=== PATIENT | female | born 1960 | race Caucasian/White ===

== ENCOUNTER 2020-11-06 20:32 | Emergency (ER) | payer OTHER, SELFPAY ==
--- NOTE | ~2020-11-06 | XR_ITS ---
XR ankle RT min 3V 11/06/2020 21:48 Indication: Right ankle pain Procedure: 4 views right ankle Comparison: No prior studies for comparison. Findings: No acute fracture or traumatic malalignment. There is moderate diffuse soft tissue swelling . Ankle mortise intact. Talar dome within normal limits. No foreign bodies. There are degenerative ch anges of the talonavicular joint. There is a prominent plantar surface calcaneal enthesophyte. Impression: 1: No acute fracture. Reviewed, dictated and finalized at location A. Impression: 1: No acute fracture.
[2020-11-06 20:44] VITALS: BP 191/83; PULSE 86; RESP 16; TEMP 36.2; O2SAT 98
--- NOTE | 2020-11-06 22:20 | ED.GENADULT ---
HPI - General Adult General Chief complaint: Extremity Injury, Lower <Greg Booker PA-C - Last Filed: 11/06/20 22:22> Stated complaint: right ankle pain <Greg Booker PA-C - Last Filed: 11/06/20 22:22> Time Seen by Provider: 11/06/20 22:04 <Greg Booker PA-C - Last Filed: 11/06/20 22:22> Source: patient and family <Greg Booker PA-C - Last Filed: 11/06/20 22:22> Mode of arrival: ambulatory <Greg Booker PA-C - Last Filed: 11/06/20 22:22> Limitations: no limitations <Greg Booker PA-C - Last Filed: 11/06/20 22:22> History of Present Illness HPI narrative: Patient is a 60-year-old female who presents to emergency department for evaluation of right ankle injury that occurred today after slipping on the stairs and injuring the ankle presents with bruising swelling and tenderness laterally has not taken anything for her symptoms no she is able to bear weight with discomfort <Greg Booker PA-C - Last Filed: 11/06/20 22:22> Related Data Allergies/adverse reactions: Allergies Allergy/AdvReac Type Severity Reaction Status Date / Time shellfish derived Allergy Unknown Unverified 03/21/14 14:13 <Greg Booker PA-C - Last Filed: 11/06/20 22:22> Review of Systems Review of Systems: All systems reviewed & are unremarkable except as noted in HPI and below <Greg Booker PA-C - Last Filed: 11/06/20 22:22> FOR[facility]LY [facility] Past Medical History Medical History: Medical History (Updated 11/07/20 @ 00:00 by Tanisha Medina) Obesity <Greg Booker PA-C - Last Filed: 11/06/20 22:22> Family History Family History: Family History (Updated 02/15/16 @ 23:19 by DOCTOR UNKNOWN) Mother Hypertension Family history of diabetes mellitus in first degree relative Father Family history of coronary artery disease <Greg Booker PA-C - Last Filed: 11/06/20 22:22> Social History Social History: Social History (Updated 11/06/20 @ 22:21 by Greg oBoker PA-C) Smoking status: Never smoker Alcohol intake: never <Greg Booker PA-C - Last Filed: 11/06/20 22:22> Exam Narrative: Exam Narrative: GENERAL: Well-appearing, well-nourished, and in no acute distress. HEAD: Normocephalic, atraumatic. EYES: PERRLA and EOMI. ENT: Nares clear, no rhinorrhea or epistaxis. Mucous membranes moist. CHEST: Clear to auscultation. No respiratory distress. No wheezes rales or rhonchi HEART: Regular rate and rhythm. No murmur heard. EXTREMITIES: Normal range of motion. No edema. Swelling and tenderness of the lateral aspect of the right ankle SKIN: Warm, dry, no rash. NEURO: No focal deficits. Alert and oriented x3. Neurovascularly intact PSYCH: Normal mood and affect. <Greg Booker PA-C - Last Filed: 11/06/20 22:22> Course Course Emergency Course: Patient in the room in no distress aware of case findings treatment plan and diagnosis agreeing to follow-up as instructed <Greg Booker PA-C - Last Filed: 11/06/20 22:22> Vital Signs Vital signs: Vital Signs Temperature 97.1 F L 11/06/20 20:44 Pulse Rate 86 11/06/20 20:44 Respiratory Rate 16 11/06/20 20:44 Blood Pressure 191/83 H 11/06/20 20:44 Pulse Oximetry 98 11/06/20 20:44 Temperature 97.1 F L 11/06/20 20:44 Pulse Rate 73 11/06/20 22:54 Respiratory Rate 18 11/06/20 22:54 Blood Pressure 180/84 H 11/06/20 22:54 Pulse Oximetry 97 11/06/20 22:54 <Greg Booker PA-C - Last Filed: 11/06/20 22:22> Vital Signs Temperature 97.1 F L 11/06/20 20:44 Pulse Rate 86 11/06/20 20:44 Respiratory Rate 16 11/06/20 20:44 Blood Pressure 191/83 H 11/06/20 20:44 Pulse Oximetry 98 11/06/20 20:44 Temperature 97.1 F L 11/06/20 20:44 Pulse Rate 73 11/06/20 22:54 Respiratory Rate 18 11/06/20 22:54 Blood Pressure 180/84 H 11/06/20 22:54 Pulse Oximetry 97 11/06/20 22:54 <Nati Isaacs MD - Last
[2020-11-06 22:54] VITALS: BP 180/84; PULSE 73; RESP 18; O2SAT 97
== END 2020-11-06 22:54 | disposition home or self-care (01) ==
PROVIDERS: Emergency Provider General Practice
DX: S93.401A Sprain of unspecified ligament of right ankle, initial encounter (principal); W18.40XA Slipping, tripping and stumbling without falling, unspecified, initial encounter
CPT/HCPCS: 73610; 99283

== ENCOUNTER 2020-11-18 10:20 | Emergency (ER) | payer OTHER, SELFPAY ==
--- NOTE | 2020-11-18 10:24 | ED.UPPEXIN ---
HPI - Extremity Injury (Upper) General Chief Complaint: Nausea/Vomiting/Diarrhea Stated Complaint: NAUSEA/WEAKNESS/NOT EATING Time Seen by Provider: 11/18/20 10:24 Source: patient and RN notes reviewed History of Present Illness HPI narrative: Patient is a 60-year-old female who presents the urgent care with complaints of nausea for approximately 3 to 4 days. Patient also reports of fatigue and some intermittent vertigo type symptoms . Patient states that every time she attempts to eat she becomes severely nauseated but denies of any abdominal pain or vomiting. Patient states that she works at the [employer] but denies of any known exposure to Covid. Patient denies of any upper respiratory symptoms including cough, shortness of breath or chest pain. Patient denies of any past medical history. Denies of any use of [id number] medication for her symptoms. Denies of fever, chills. No other acute complaints. No acute distress noted. Patient aware of the plan of care. Some parts of this dictation were generated by voice recognition software and may contain typographical and/or grammatical inaccuracies. Related Data Allergies Allergy/AdvReac Type Severity Reaction Status Date / Time shellfish derived Allergy Unknown Unverified 03/21/14 14:13 Review of Systems Review of Systems: Narrative: CONSTITUTIONAL: Denies fever, chills, or sweats. EYES: Denies visual changes, redness, or discharge. ENT: Denies rhinorrhea, congestion, sore throat, or otalgia. CARDIOVASCULAR: Denies chest pain, palpitations, or edema. RESPIRATORY: Denies cough or dyspnea. GASTROINTESTINAL: Reports of nausea without vomiting or diarrhea GENITOURINARY: Denies dysuria or hematuria. SKIN: Denies rash or itching. MUSCULOSKELETAL: Denies back pain, joint pain, or myalgia. NEUROLOGIC: Denies headache, numbness. Reports of fatigue All other systems reviewed are negative, except as documented in HPI. [facility] Past Medical History Medical History (Updated 11/07/20 @ 00:00 by Tanisha Daemsavage) Obesity Family History Family History (Updated 02/15/16 @ 23:19 by DOCTOR UNKNOWN) Mother Hypertension Family history of diabetes mellitus in first degree relative Father Family history of coronary artery disease Social History Social History (Updated 11/06/20 @ 22:21 by Greg Booker PA-C) Smoking status: Never smoker Alcohol intake: never Comments At the time of my signature, I reviewed and agree with the nursing past medical, surgical, social, and family history. There is no relevant family history pertinent to the patient complaint. Exam Narrative: Exam Narrative: GENERAL: This is a well-nourished, well-developed patient, in no apparent distress. HEAD: normocephalic, atraumatic. EYES: PERRL. Sclera clear/white. Vision is grossly intact. EARS: External ears normal, auditory canals clear and without drainage, TMs normal without perforation. Hearing grossly intact. NOSE: External nose normal with no obvious nasal discharge, nares without redness, no rhinorrhea. THROAT: Mucous membranes moist, posterior pharynx clear. NECK: Neck supple, non-tender without lymphadenopathy, masses or thyromegaly. CARDIOVASCULAR: Regular rate and rhythm without murmurs, gallops, or rubs. RESPIRATORY: Clear to auscultation. Breath sounds equal bilaterally. No wheezes, rales, or rhonchi. GASTROINTESTINAL: Abdomen soft, non-tender, nondistended. Bowel sounds are active. No hepato-splenomegaly, or palpable masses. No guarding. SKIN: warm, intact with no suspicious lesions or rash, good texture and turgor. NEURO: awake, alert, and oriented to person, place and time. There were no obvious focal neurologic abnormalities. EXTREMITIES: No clubbing, cyanosis, or edema. No joint tenderness, effusion, or edema noted. No calf tenderness. Negative Homans sign bilaterally. BACK: Nontender without deformity or crepitance. No flank tenderness.
[2020-11-18 10:29] VITALS: BP 149/76; PULSE 87; RESP 16; TEMP 37.2; O2SAT 95
[2020-11-18 10:40] LABS: Glucose Point of Care 109 (65-105)
--- NOTE | 2020-11-18 10:43 | ED.NAVMDI ---
HPI - Nausea/Vomiting/Diarrhea General Chief complaint: Nausea/Vomiting/Diarrhea Stated complaint: NAUSEA/WEAKNESS/NOT EATING Time Seen by Provider: 11/18/20 10:24 Source: patient and RN notes reviewed History of Present Illness HPI Narrative: Patient is a 60-year-old female who presents the urgent care with complaints of nausea for approximately 3 to 4 days. Patient also reports of fatigue and some intermittent vertigo type symptoms . Patient states that every time she attempts to eat she becomes severely nauseated but denies of any abdominal pain or vomiting. Patient states that she works at the [employer] but denies of any known exposure to Covid. Patient denies of any upper respiratory symptoms including cough, shortness of breath or chest pain. Patient denies of any past medical history. Denies of any use of [id number] medication for her symptoms. Denies of fever, chills. No other acute complaints. No acute distress noted. Patient aware of the plan of care. Some parts of this dictation were generated by voice recognition software and may contain typographical and/or grammatical inaccuracies. Related Data Allergies Allergy/AdvReac Type Severity Reaction Status Date / Time shellfish derived Allergy Unknown Unverified 03/21/14 14:13 Review of Systems Review of Systems: Narrative: CONSTITUTIONAL: Denies fever, chills, or sweats. EYES: Denies visual changes, redness, or discharge. ENT: Denies rhinorrhea, congestion, sore throat, or otalgia. CARDIOVASCULAR: Denies chest pain, palpitations, or edema. RESPIRATORY: Denies cough or dyspnea. GASTROINTESTINAL: Reports of nausea without abdominal pain, vomiting or diarrhea GENITOURINARY: Denies dysuria or hematuria. SKIN: Denies rash or itching. MUSCULOSKELETAL: Denies back pain, joint pain, or myalgia. NEUROLOGIC: Denies headache, numbness. Reports of fatigue All other systems reviewed are negative, except as documented in HPI. [facility] Past Medical History Medical History (Updated 11/18/20 @ 10:47 by NANCY Barton) Obesity Family History Family History (Updated 02/15/16 @ 23:19 by DOCTOR UNKNOWN) Mother Hypertension Family history of diabetes mellitus in first degree relative Father Family history of coronary artery disease Social History Social History (Updated 11/06/20 @ 22:21 by Greg Booker PA-C) Smoking status: Never smoker Alcohol intake: never Comments At the time of my signature, I reviewed and agree with the nursing past medical, surgical, social, and family history. There is no relevant family history pertinent to the patient complaint. Exam Narrative: Exam Narrative: GENERAL: This is a well-nourished, well-developed patient, in no apparent distress. Appears slightly fatigued HEAD: normocephalic, atraumatic. EYES: PERRL. Sclera clear/white. Vision is grossly intact. EARS: External ears normal NOSE: External nose normal with no obvious nasal discharge, nares without redness, no rhinorrhea. THROAT: Mucous membranes moist NECK: Neck supple CARDIOVASCULAR: Regular rate and rhythm without murmurs, gallops, or rubs. RESPIRATORY: Clear to auscultation. Breath sounds equal bilaterally. No wheezes, rales, or rhonchi. GASTROINTESTINAL: Abdomen soft, non-tender, nondistended. Bowel sounds are active. SKIN: warm, intact with no suspicious lesions or rash, good texture and turgor. NEURO: awake, alert, and oriented to person, place and time. There were no obvious focal neurologic abnormalities. EXTREMITIES: No clubbing, cyanosis, or edema BACK: Mild diffuse lumbar tenderness Course Vital Signs Vital signs: Vital Signs Temperature 98.9 F 11/18/20 10:29 Pulse Rate 87 11/18/20 10:29 Respiratory Rate 16 11/18/20 10:29 Blood Pressure 149/76 H 11/18/20 10:29 Pulse Oximetry 95 11/18/20 10:29 Temperature 98.9 F 11/18/20 10:29 Pulse Rate 87 11/18/20 10:29 Respiratory Rate 16 11/18/20 10:29 Blood Pressure
== END 2020-11-18 11:06 | disposition home or self-care (01) ==
PROVIDERS: Emergency Provider Nurse Practitioner Family
DX: U07.1 COVID-19 (principal)
CPT/HCPCS: 81003; 82948; 87426; 99213; C9803; G0463

== ENCOUNTER 2022-04-03 16:19 | Emergency (ER) | payer OTHER, SELFPAY ==
[2022-04-03] VITALS (16 sets, daily range): BP systolic 175–224; BP diastolic 77–108; PULSE 83–107; RESP 12–32; TEMP 36.6; O2SAT 98–99
--- NOTE | ~2022-04-03 | XR_ITS ---
EXAMINATION: XR chest 2V DATE: 04/03/2022 16:49 INDICATION: Shortness of breath. Generalized chest pain. TECHNIQUE: Frontal and lateral views of the chest were obtained. COMPARISON: None. FINDINGS: There is mild atelectasis in left lower lung zone. No pleural effusion or pneumothorax. The heart size is normal. IMPRESSION: 1. Mild atelectasis in left lower lung zone. Reviewed, dictated and finalized at location A.
--- NOTE | 2022-04-03 16:21 | ECG_ITS ---
Measurements Intervals [place] Rate: 97 P: 62 TX: 148 QRS: 18 QRSD: 89 T: 42 QT: 362 QTc: 460 Interpretive Statements SINUS RHYTHM DELAYED PRECORDIAL R/S TRANSITION BORDERLINE ST-T WAVE ABNORMALITY- INF/LAT LEADS BORDERLINE ECG NO PREVIOUS ECG AVAILABLE FOR COMPARISON Electronically Signed On 04-03-2022 21:33:00 CDT by [place] D.O.
[2022-04-03 17:15] LABS: Basophils Percent Auto 0.7 % (0.2-1.2); Eosinophils Absolute Auto 0.1 K/mm3 (0-0.3); Hematocrit 45.1 % (37.0-47.0); Hemoglobin 15.3 g/dL (12.0-15.0); Immature Granulocyte Absolute 0.03 K/mm3 (0.00-0.031); Immature Granulocyte Percent A 0.5 % (0-0.5); Lymphocytes Absolute Auto 1.62 K/mm3 (0.9-3.2); Lymphocytes Percent Auto 27.1 % (18.3-44.2); Mean Corpuscular HGB Conc 33.9 g/dl (32-36); Mean Corpuscular Hemoglobin 29.4 pg (26-34); Mean Corpuscular Volume 86.7 fl (80-100); Mean Platelet Volume 10.6 fl (7.4-10.4); Monocytes Absolute Auto 0.6 K/mm3 (0.1-0.6); Monocytes Percent Auto 10.2 % (2.6-8.5); Neutrophils Absolute Auto 3.6 K/mm3 (1.3-6.7); Neutrophils Percent Auto 60.5 % (45.5-73.1); Platelet Count Result 168 k/mm3 (150-375); Red Cell Distribution Width 12.9 % (11.5-14.5)
[2022-04-03 17:24] LABS: Alanine Aminotransferase 73 U/L (6-35); Albumin Level 4.7 g/dL (3.5-5.1); Alkaline Phosphatase 101 U/L (38-126); Anion Gap 11 mmol/L (8-16); Aspartate Amino Transferase 62 U/L (14-36); Bilirubin,Total 0.7 mg/dL (0.2-1.3); Blood Urea Nitrogen 17 mg/dL (7-17); Calcium 9.9 mg/dL (8.4-10.2); Carbon Dioxide 29 mmol/L (22-30); Chloride 100 mmol/L (98-107); Estimated CRCL calculation 69 ml/min; Estimated Glomerular Filt Rate > 60; Glucose 116 mg/dL (65-110); Lipase 73 U/L (23-300); Potassium 3.4 mmol/L (3.4-5.0); Sodium 140 mmol/L (137-145)
[2022-04-03 17:25] LABS: INR 1.1; Prothrombin Time 13.5 Seconds (11.1-14.7)
[2022-04-03 17:26] LABS: Partial Thromboplastin Time 24.9 SECONDS (22.3-36.8)
[2022-04-03 17:36] LABS: Troponin I < 0.012 ng/mL (0.000-0.034)
[2022-04-03] MEDS: ASPIRIN 81 MG CHEWABLE TABLET 324 MG PO (18:41)
[2022-04-03] MEDS: amLODIPine BESYLATE 5 MG TABLET 10 MG PO (18:42)
[2022-04-03] MEDS: hydroCHLOROthiazide 25 MG TABLET PO (18:42)
--- NOTE | 2022-04-03 19:46 | ED.CHESTPAIN ---
HPI - Chest Pain General Chief Complaint: Chest Pain Stated Complaint: CHEST PAIN X1/2 HOUR Time Seen by Provider: 04/03/22 18:00 History of Present Illness HPI narrative: Patient is a 61-year-old female who presents ER with chest pain. Central. Lasted for about a minute. She had 2 episodes. No radiation. No nausea or vomiting. No dyspnea or diaphoresis. No history of heart disease. Patient does not see doctors at baseline. Symptoms occurred moments prior to arrival. Related Data Allergies Allergy/AdvReac Type Severity Reaction Status Date / Time shellfish derived Allergy Unknown Swelling Verified 04/03/22 18:12 of Lip/Tongue/Throat Review of Systems Review of Systems: All systems reviewed & are unremarkable except as noted in HPI and below Constitutional: Constitutional: Denies chills, Denies fatigue and Denies fever(s) ENT: Denies nasal congestion and Denies sore throat Cardiovascular: Cardiovascular: Reports chest pain, Denies rapid heart rate, Denies radiating jaw, neck or arm pain and Denies slow heart rate Respiratory: Respiratory: Denies cough and Denies dyspnea Gastrointestinal: Gastrointestinal: Denies abdominal pain, Denies nausea and Denies vomiting Musculoskeletal: Musculoskeletal: Denies back pain PMF Past Medical History Medical History (Updated 04/03/22 @ 20:36 by Dagoberto Rivera MD) Obesity Surgical History Surgical History (Updated 04/03/22 @ 19:49 by Dagoberto Rivera MD) No history of previous surgery Family History Family History (Updated 02/15/16 @ 23:19 by DOCTOR UNKNOWN) Mother Hypertension Family history of diabetes mellitus in first degree relative Father Family history of coronary artery disease Social History Social History (Updated 11/06/20 @ 22:21 by Greg Booker, PA-C) Smoking status: Never smoker Alcohol intake: never Exam Narrative: GENERAL: Well-appearing, morbidly obese, and in no acute distress. HEAD: Normocephalic, atraumatic. ENT: Mucous membranes moist. NECK: Supple. CHEST: Clear to auscultation. No respiratory distress. HEART: Regular rate and rhythm. Normal peripheral pulses. ABDOMEN: Soft, nontender, nondistended. EXTREMITIES: Normal range of motion. No edema. SKIN: Warm, dry, no rash. NEURO: Alert and oriented x3. PSYCH: Normal mood and affect. Course Course Emergency Course: Troponin negative x2. His blood pressure has come down on its own but patient also has been given treatment to help lower it further. She plans on establishing care with PCP tomorrow. She will be given a weeks worth of medication. Vital Signs Vital signs: Vital Signs Temperature 97.9 F 04/03/22 16:41 Pulse Rate 107 H 04/03/22 16:41 Respiratory Rate 20 04/03/22 16:41 Blood Pressure 224/102 H 04/03/22 16:41 Pulse Oximetry 98 04/03/22 16:41 Oxygen Delivery Room Air 04/03/22 16:41 Temperature 97.9 F 04/03/22 16:41 Pulse Rate 83 04/03/22 19:32 Respiratory Rate 21 H 04/03/22 19:32 Blood Pressure 196/88 H 04/03/22 19:32 Pulse Oximetry 98 04/03/22 16:41 Oxygen Delivery Room Air 04/03/22 16:41 MDM - Chest Pain Lab Data Result diagrams: 04/03/22 16:57 04/03/22 16:57 Labs: Lab Results 04/03/22 04/03/22 04/03/22 Range/Units 16:57 16:57 16:57 WBC 6.0 (4.5-10.0) K/mm3 RBC 5.20 (4.2-5.4) M/mm3 Hgb 15.3 H (12.0-15.0) g/dL Hct 45.1 (37.0-47.0) % MCV 86.7 (80-100) fl MCH 29.4 (26-34) pg MCHC 33.9 (32-36) g/dl RDW 12.9 (11.5-14.5) % Plt Count 168 (150-375) k/mm3 MPV 10.6 H (7.4-10.4) fl Immature Gran % (Auto) 0.5 (0-0.5) % Neut % (Auto) 60.5 (45.5-73.1) % Lymph % (Auto) 27.1 (18.3-44.2) % [place] % (Auto) 10.2 H (2.6-8.5) % Eos % (Auto) 1.0 (0-4.4) % Baso % (Auto) 0.7 (0.2-1.2) % Lymph # (Auto) 1.62 (0.9-3.2) K/mm3 [place] # (Auto) 0.6 (0.1-0.6) K/mm3 Eos # (Auto) 0.1
[2022-04-03 19:59] LABS: Troponin I < 0.012 ng/mL (0.000-0.034)
== END 2022-04-03 20:45 | disposition home or self-care (01) ==
PROVIDERS: Emergency Provider Emergency Medicine
DX: R07.9 Chest pain, unspecified (principal); I10 Essential (primary) hypertension; E66.9 Obesity, unspecified; Z68.42 Body mass index [BMI] 45.0-49.9, adult; R94.31 Abnormal electrocardiogram [ECG] [EKG]
CPT/HCPCS: 36415; 71046; 80053; 83690; 84484; 85025; 85610; 85730; 93005; 99284; A9270

== ENCOUNTER 2024-02-23 08:38 | Outpatient (CLI) | payer OTHER, SELFPAY ==
[2024-02-23 09:19] LABS: Hematocrit 44.3 % (37.0-47.0); Hemoglobin 14.1 g/dL (12.0-15.0); Mean Corpuscular HGB Conc 31.8 g/dl (32-36); Mean Corpuscular Hemoglobin 28.6 pg (26-34); Mean Corpuscular Volume 89.9 fl (80-100); Mean Platelet Volume 10.9 fl (7.4-10.4); Platelet Count Result 157 k/mm3 (150-375); Red Blood Count 4.93 M/mm3 (4.2-5.4); Red Cell Distribution Width 13.4 % (11.5-14.5); White Blood Count 6.6 K/mm3 (4.5-10.0)
[2024-02-23 10:25] LABS: MALB Creatinine Ratio 9.4 mg/g (0-30); Microalbumin Urine Random 16.7 mg/L (0-16.7)
[2024-02-23 10:30] LABS: Alanine Aminotransferase 24 U/L (6-35); Albumin Level 4.5 g/dL (3.5-5.1); Alkaline Phosphatase 67 U/L (38-126); Anion Gap 9 mmol/L (4-12); Aspartate Amino Transferase 28 U/L (14-36); Bilirubin,Total 0.5 mg/dL (0.2-1.3); Blood Urea Nitrogen 26 mg/dL (7-17); Calcium 9.6 mg/dL (8.4-10.2); Carbon Dioxide 31 mmol/L (22-30); Chloride 102 mmol/L (98-107); Cholesterol 138 mg/dL (0-200); Estimated Glomerular Filt Rate 50; Glucose 124 mg/dL (65-110); HDL Direct 52 mg/dL; Potassium 4.1 mmol/L (3.4-5.0); Sodium 142 mmol/L (137-145); Triglycerides 119 mg/dL (<150)
[2024-02-23 10:35] LABS: LDL Cholesterol Direct 55 mg/dL
[2024-02-23 11:01] LABS: Free T4 Free Thyroxine 1.04 ng/mL (0.78-2.19)
[2024-02-23 11:25] LABS: Vitamin D 25 Hydroxy 53.2 ng/mL
[2024-02-23 11:31] LABS: Hemoglobin A1C 6.3 % (<5.7)
== END 2024-02-23 08:39 | disposition home or self-care (01) ==
LOC: ANHLAB 08:40
PROVIDERS: PCP Nurse Practitioner Family; Visit Provider Nurse Practitioner Family
DX: G47.33 Obstructive sleep apnea (adult) (pediatric) (principal); E05.00 Thyrotoxicosis with diffuse goiter without thyrotoxic crisis or storm; E07.9 Disorder of thyroid, unspecified; E78.5 Hyperlipidemia, unspecified; I10 Essential (primary) hypertension; R53.83 Other fatigue
CPT/HCPCS: 36415; 80053; 80061; 82043; 82306; 83036; 84439; 84443; 85027

== ENCOUNTER 2024-05-10 13:49 | Outpatient (CLI) | payer OTHER, SELFPAY ==
[2024-05-10 15:11] LABS: Anion Gap 10 mmol/L (4-12); Blood Urea Nitrogen 21 mg/dL (7-17); Carbon Dioxide 28 mmol/L (22-30); Chloride 102 mmol/L (98-107); Estimated Glomerular Filt Rate 42; Glucose 92 mg/dL (65-110); Potassium 3.7 mmol/L (3.4-5.0); Sodium 140 mmol/L (137-145)
== END 2024-05-10 13:50 | disposition home or self-care (01) ==
LOC: ANHLAB 13:50
PROVIDERS: PCP Family Medicine; Visit Provider Nurse Practitioner Family
DX: E05.00 Thyrotoxicosis with diffuse goiter without thyrotoxic crisis or storm (principal); I10 Essential (primary) hypertension; Z68.43 Body mass index [BMI] 50.0-59.9, adult
CPT/HCPCS: 36415; 80048; 84436; 84443

== ENCOUNTER 2024-06-03 11:09 | Outpatient (CLI) | payer OTHER, SELFPAY ==
[2024-06-03 11:53] LABS: Anion Gap 6 mmol/L (4-12); Blood Urea Nitrogen 21 mg/dL (7-17); Calcium 9.6 mg/dL (8.4-10.2); Carbon Dioxide 29 mmol/L (22-30); Chloride 104 mmol/L (98-107); Estimated Glomerular Filt Rate 50; Glucose 92 mg/dL (65-110); Potassium 3.7 mmol/L (3.4-5.0); Sodium 139 mmol/L (137-145)
== END 2024-06-03 11:10 | disposition home or self-care (01) ==
LOC: ANHLAB 11:10
PROVIDERS: PCP Family Medicine; Visit Provider Nurse Practitioner Family
DX: N28.9 Disorder of kidney and ureter, unspecified (principal)
CPT/HCPCS: 36415; 80048

== ENCOUNTER 2025-02-21 08:19 | Outpatient (CLI) | payer OTHER, SELFPAY ==
--- OUTSIDE RECORDS SUMMARY | 2025-02-21 08:23 | XMS_ITS | Clinical Summary ---
Author Organization [facility] Care Team Providers Care Interior Design Professional Name Role Phone Unavailable Primary Care Provider Unavailabl e Social History Tobacco Use Types Packs/Day Years Used Date Smoking Tobacco: Never Assessed Comments Unknown Sex and Gender Information Value Date Recorded Sex Assigned at Not on file Legal Sex Female 10:18 PM CDT Gender Identity Not on file Sexual Orientation Not on file Plan of Treatment Not on file
[2025-02-21 08:51] LABS: Hematocrit 42.5 % (37.0-47.0); Hemoglobin 13.9 g/dL (12.0-15.0); Mean Corpuscular HGB Conc 32.7 g/dl (32-36); Mean Corpuscular Hemoglobin 28.5 pg (26-34); Mean Corpuscular Volume 87.3 fl (80-100); Platelet Count Result 170 k/mm3 (150-375); Red Blood Count 4.87 M/mm3 (4.2-5.4); White Blood Count 6.7 K/mm3 (4.5-10.0)
[2025-02-21 09:24] LABS: Hemoglobin A1C 5.9 % (<5.7)
[2025-02-21 09:29] LABS: MALB Creatinine Ratio 17.3 mg/g (0-30)
[2025-02-21 09:35] LABS: Alanine Aminotransferase 25 U/L (6-35); Albumin Level 4.6 g/dL (3.5-5.1); Alkaline Phosphatase 77 U/L (38-126); Anion Gap 9 mmol/L (4-12); Aspartate Amino Transferase 34 U/L (14-36); Bilirubin,Total 0.6 mg/dL (0.2-1.3); Blood Urea Nitrogen 21 mg/dL (7-17); Calcium 10.0 mg/dL (8.4-10.2); Carbon Dioxide 27 mmol/L (22-30); Chloride 105 mmol/L (98-107); Cholesterol 144 mg/dL (0-200); Estimated Glomerular Filt Rate 54; Glucose 115 mg/dL (65-110); HDL Direct 51 mg/dL; Potassium 3.8 mmol/L (3.4-5.0); Sodium 141 mmol/L (137-145); Total Protein 7.4 g/dL (6.3-8.2); Triglycerides 111 mg/dL (<150)
[2025-02-21 09:54] LABS: Free T4 Free Thyroxine 1.15 ng/dL (0.78-2.19)
[2025-02-21 10:11] LABS: Thyroid Stimulating Hormone 2.620 uIU/mL (0.465-4.680)
== END 2025-02-21 08:20 | disposition home or self-care (01) ==
LOC: ANHLAB 08:20
PROVIDERS: PCP Family Medicine; Visit Provider Nurse Practitioner Family
DX: E78.5 Hyperlipidemia, unspecified (principal); R73.03 Prediabetes; E07.9 Disorder of thyroid, unspecified; R53.83 Other fatigue; E55.9 Vitamin D deficiency, unspecified; I12.9 Hypertensive chronic kidney disease with stage 1 through stage 4 chronic kidney disease, or unspecified chronic kidney disease; N18.9 Chronic kidney disease, unspecified
CPT/HCPCS: 36415; 80053; 80061; 82043; 82306; 83036; 84439; 84443; 85027